=== PATIENT | female | born 1985 | race Two or more races ===

== ENCOUNTER 2021-05-24 15:30 | Inpatient (IN) | payer OTHER ==
[~2021-05-24] VITALS: Ht 167.6 cm; Wt 98.0 kg
[2021-06-06] MEDS ORDERED: ZYRTEC10 MG (08:18)
[2021-06-06] MEDS ORDERED: SYNTHROID50 MCG (08:18)
[2021-06-06] MEDS ORDERED: LAMICTAL100 MG (08:19)
[2021-06-06] MEDS ORDERED: FOLIC ACID1 MG (08:19)
[2021-06-06] MEDS ORDERED: OBTREX DHA COM1 EACH (08:19)
== END 2021-06-07 12:35 | disposition home or self-care (01) | DRG 807 ==
LOC: LDR 06-05 08:48 → OB/GYN 06-05 16:42
PROVIDERS: ADMIT Obstetrics & Gynecology Maternal & Fetal Medicine; ATTEND Obstetrics & Gynecology Maternal & Fetal Medicine
PROC: 10E0XZZ Delivery of Products of Conception, External Approach (ICD-10-PCS; principal; 2021-06-05)
PROC: 0W8NXZZ Division of Female Perineum, External Approach (ICD-10-PCS; 2021-06-05)
PROC: 4A1HXFZ Monitoring of Products of Conception, Cardiac Rhythm, External Approach (ICD-10-PCS; 2021-06-05)
DX: O99.824 Streptococcus B carrier state complicating childbirth (principal); O99.284 Endocrine, nutritional and metabolic diseases complicating childbirth; E03.9 Hypothyroidism, unspecified; Z37.0 Single live birth; Z3A.38 38 weeks gestation of pregnancy